=== PATIENT | male | born 1945 | race Caucasian/White ===

== ENCOUNTER 2020-11-02 07:26 | Inpatient (IN) | payer MEDICARE ==
[~2020-11-02] VITALS: Ht 177.8 cm; Wt 62.0 kg
[~2020-11-02 07:26] MED LIST: CARV3.1212 PO; CHLO25CA9 PO; DILT120C11 PO; FERR324T23 PO; FURO-93 PO; LISI5TAB7 PO; MULT-484 PO; POTA8TAB PO; RIVA20TA PO; SPIR25TA PO
[2020-11-02] MEDS ORDERED: SODIUM CHLORIDE FLUSH 10ML SYR IVF ONE (07:30)
[2020-11-02] MEDS ORDERED: DILTIAZEM 5 MG/ML, 5ML IVPush ONE (07:30)
--- NOTE | 2020-11-02 07:40 | NUR ---
ROOM AIR O2 SAT: 82%. O2 2LNC REAPPLIED. PT NON-COMPLIANT W/ PRESCRIBED MEDICATIONS.
[2020-11-02 07:52] LABS: BASOPHILS % (AUTO) 1 % (0-1); EOSINOPHILS % (AUTO) 0 % (1-7); LYMPHOCYTES % (AUTO) 6 % (22-44); MEAN CORPUSCULAR HEMOGLOBIN 33.3 pg (27.5-34.5); MEAN CORPUSCULAR HGB CONC 33.5 g/dL (33.2-36.2); MEAN PLATELET VOLUME 6.9 fL (7.4-10.4); MONOCYTES % (AUTO) 9 % (2-9); NEUTROPHILS % (AUTO) 85 % (42-75); PLATELET COUNT 214 x10^3/uL (130-400); RED BLOOD COUNT 4.03 x10^6/uL (4.38-5.82); RED CELL DISTRIBUTION WIDTH 15.2 % (9.4-14.8)
[2020-11-02] MEDS ORDERED: DILTIAZEM 5 MG/ML, 5ML ONE (07:52)
[2020-11-02 07:59] LABS: ALANINE AMINOTRANSFERASE 484 U/L (12-78); ANION GAP 11 mmol/L (5-15); CALCIUM 8.3 mg/dL (8.5-10.1); CHLORIDE 102 mmol/L (98-107); CREATININE 1.13 mg/dL (0.7-1.3)
[2020-11-02 08:03] LABS: ALKALINE PHOSPHATASE 179 U/L (45-117); BILIRUBIN,TOTAL 1.2 mg/dL (0.2-1.0); TOTAL PROTEIN 7.7 g/dL (6.4-8.2); TROPONIN I 0.032 ng/mL (0.000-0.045)
--- NOTE | 2020-11-02 08:03 | NUR ---
CARDIZEM GIVEN; IV SITE PATENT.
[2020-11-02] MEDS ORDERED: DILTIAZEM 5 MG/ML, 5ML IVPush STA (08:15)
[2020-11-02] MEDS ORDERED: FUROSEMIDE 20 MG/2 ML ONE (08:25)
[2020-11-02] MEDS ORDERED: ASPIRIN 81 MG TABLET CHEW ONE (08:25)
[2020-11-02] MEDS ORDERED: FUROSEMIDE 20 MG/2 ML IV ONE (08:30)
[2020-11-02] MEDS ORDERED: ASPIRIN 81 MG TABLET CHEW PO ONE (08:30)
--- NOTE | 2020-11-02 08:39 | NUR ---
DILTIAZEM, ASA AND LASIX GIVEN PER EMAR. HR 120-125
[2020-11-02] MEDS: DILTIAZEM 125 MG in SODIUM CHLORIDE 0.9% 100 ML IV SCH ×2 (08:57→17:51)
--- NOTE | 2020-11-02 08:58 | NUR ---
CARDIZEM DRIP INITIATED; INFUSING AT 10ML/HR VIA PUMP.
--- NOTE | 2020-11-02 10:08 | NUR ---
PT REPORT WAS GIVEN TO HENRRY RODRIGUEZ FOR ROOM 506. PT WAS TRANSPORTED TO UNIT PER VANNA
--- NOTE | 2020-11-02 10:11 | NUR ---
CORRECTION: PT NOW TRANSFERRED TO UNIT PER VANNA
[2020-11-02] MEDS: RIVAROXABAN 20 MG TABLET PO SCH (11:42)
[2020-11-02] MEDS ORDERED: HYDROCORTISONE CRM 1%, 30GM TP PRN (14:00)
[2020-11-02 15:14] VITALS: BP 111/72
[2020-11-02] MEDS: FERROUS GLUCONATE 324 MG TABLET PO SCH (16:23)
[2020-11-02] MEDS: ACETAMINOPHEN 325 MG TABLET PO PRN (17:34)
[2020-11-02 19:22] VITALS: BP 118/78
[2020-11-02] MEDS: DIPHENHYDRAMINE 25 MG CAPSULE PO PRN (21:04)
[2020-11-03 00:02] VITALS: BP 102/72
[2020-11-03] MEDS: OXYcodone IR 5MG TABLET PO PRN ×2 (02:28→21:04)
[2020-11-03] MEDS ORDERED: LIDODERM 5% PATCH TD ONE (03:30)
[2020-11-03 05:22] LABS: BASOPHILS % (AUTO) 0 % (0-1); EOSINOPHILS % (AUTO) 1 % (1-7); LYMPHOCYTES % (AUTO) 9 % (22-44); MEAN CORPUSCULAR HGB CONC 33.5 g/dL (33.2-36.2); MEAN PLATELET VOLUME 7.5 fL (7.4-10.4); MONOCYTES % (AUTO) 11 % (2-9); NEUTROPHILS % (AUTO) 79 % (42-75); PLATELET COUNT 188 x10^3/uL (130-400); RED BLOOD COUNT 3.81 x10^6/uL (4.38-5.82); RED CELL DISTRIBUTION WIDTH 15.1 % (9.4-14.8)
[2020-11-03 05:33] LABS: CHLORIDE 98 mmol/L (98-107)
[2020-11-03 05:42] LABS: ALANINE AMINOTRANSFERASE 336 U/L (12-78); ALBUMIN 2.9 g/dL (3.4-5.0); ALKALINE PHOSPHATASE 162 U/L (45-117); ANION GAP 5 mmol/L (5-15); CALCIUM 8.2 mg/dL (8.5-10.1); CREATININE 0.86 mg/dL (0.7-1.3); TOTAL PROTEIN 7.4 g/dL (6.4-8.2)
[2020-11-03 06:47] VITALS: BP 123/79
[2020-11-03] MEDS: DILTIAZEM 125 MG in SODIUM CHLORIDE 0.9% 100 ML IV SCH ×2 (07:12→21:04)
[2020-11-03] MEDS: FERROUS GLUCONATE 324 MG TABLET PO SCH ×2 (08:00→16:58)
[2020-11-03] MEDS ORDERED: FUROSEMIDE 20 MG/2 ML IV SCH (09:00)
[2020-11-03] MEDS: RIVAROXABAN 20 MG TABLET PO SCH (09:39)
[2020-11-03] MEDS ORDERED: OMNIPAQUE 350 MG/ML, 75ML BOTTLE ONE (11:52)
[2020-11-03 12:10] VITALS: BP 126/85
[2020-11-03] MEDS: FUROSEMIDE 20 MG/2 ML IV SCH (17:03)
[2020-11-03 18:43] VITALS: BP 112/79
[2020-11-03] MEDS: DIPHENHYDRAMINE 25 MG CAPSULE PO PRN (21:03)
[2020-11-03 23:14] VITALS: BP 122/84
[2020-11-04 06:00] LABS: BASOPHILS % (AUTO) 0 % (0-1); EOSINOPHILS % (AUTO) 0 % (1-7); LYMPHOCYTES % (AUTO) 4 % (22-44); MEAN CORPUSCULAR HEMOGLOBIN 33.5 pg (27.5-34.5); MEAN PLATELET VOLUME 7.5 fL (7.4-10.4); MONOCYTES % (AUTO) 9 % (2-9); NEUTROPHILS % (AUTO) 86 % (42-75); PLATELET COUNT 176 x10^3/uL (130-400); RED BLOOD COUNT 3.86 x10^6/uL (4.38-5.82); RED CELL DISTRIBUTION WIDTH 15.2 % (9.4-14.8)
[2020-11-04 06:06] LABS: ANION GAP 6 mmol/L (5-15); CALCIUM 8.5 mg/dL (8.5-10.1); CHLORIDE 97 mmol/L (98-107)
[2020-11-04 06:35] LABS: ALANINE AMINOTRANSFERASE 238 U/L (12-78); ALKALINE PHOSPHATASE 149 U/L (45-117); CREATININE 0.82 mg/dL (0.7-1.3); TOTAL PROTEIN 7.8 g/dL (6.4-8.2)
[2020-11-04 06:57] VITALS: BP 115/70
[2020-11-04] MEDS: FERROUS GLUCONATE 324 MG TABLET PO SCH ×2 (08:00→16:46)
[2020-11-04] MEDS: FUROSEMIDE 20 MG/2 ML IV SCH ×2 (08:02→16:44)
[2020-11-04] MEDS: DILTIAZEM 125 MG in SODIUM CHLORIDE 0.9% 100 ML IV SCH ×2 (08:03→20:35)
[2020-11-04] MEDS: RIVAROXABAN 20 MG TABLET PO SCH (08:03)
[2020-11-04 12:15] VITALS: BP 109/72
[2020-11-04] MEDS: SENNA/DOCUSATE TABLET PO PRN (17:05)
[2020-11-04 19:31] VITALS: BP 119/77
[2020-11-04] MEDS: ACETAMINOPHEN 325 MG TABLET PO PRN (20:35)
[2020-11-05 00:05] VITALS: BP 117/75
[2020-11-05] MEDS: DIPHENHYDRAMINE 25 MG CAPSULE PO PRN ×2 (01:36→19:54)
[2020-11-05] MEDS: LORazepam 1MG TABLET PO PRN ×2 (02:44→19:54)
[2020-11-05 04:30] VITALS: BP 126/72
[2020-11-05] MEDS ORDERED: FUROSEMIDE 40 MG/4 ML IV STA (05:34)
[2020-11-05 05:45] LABS: ALBUMIN 2.8 g/dL (3.4-5.0); ANION GAP 6 mmol/L (5-15); CALCIUM 8.2 mg/dL (8.5-10.1); CHLORIDE 95 mmol/L (98-107)
[2020-11-05 05:47] LABS: BASOPHILS % (AUTO) 0 % (0-1); EOSINOPHILS % (AUTO) 0 % (1-7); LYMPHOCYTES % (AUTO) 5 % (22-44); MEAN CORPUSCULAR HEMOGLOBIN 32.8 pg (27.5-34.5); MEAN CORPUSCULAR HGB CONC 33.2 g/dL (33.2-36.2); MEAN PLATELET VOLUME 7.3 fL (7.4-10.4); MONOCYTES % (AUTO) 8 % (2-9); NEUTROPHILS % (AUTO) 87 % (42-75); PLATELET COUNT 171 x10^3/uL (130-400); RED CELL DISTRIBUTION WIDTH 15.2 % (9.4-14.8)
[2020-11-05 05:48] LABS: ALANINE AMINOTRANSFERASE 170 U/L (12-78); ALKALINE PHOSPHATASE 139 U/L (45-117); BILIRUBIN,TOTAL 2.3 mg/dL (0.2-1.0); CREATININE 0.79 mg/dL (0.7-1.3); TOTAL PROTEIN 7.7 g/dL (6.4-8.2)
[2020-11-05 06:41] VITALS: BP 121/78
[2020-11-05] MEDS: FUROSEMIDE 20 MG/2 ML IV SCH (08:00)
[2020-11-05] MEDS: FERROUS GLUCONATE 324 MG TABLET PO SCH ×2 (08:00→17:00)
[2020-11-05] MEDS: RIVAROXABAN 20 MG TABLET PO SCH (08:00)
[2020-11-05] MEDS ORDERED: FUROSEMIDE 40 MG/4 ML IV ONE (10:00)
[2020-11-05] MEDS ORDERED: POTASSIUM CHLORIDE 20 MEQ TAB.ER.PRT PO ONE (10:00)
[2020-11-05] MEDS: DILTIAZEM 125 MG in SODIUM CHLORIDE 0.9% 100 ML IV SCH ×2 (10:48→23:31)
[2020-11-05 14:26] VITALS: BP 111/69
[2020-11-05] MEDS: DEXAMETHASONE 4 MG/ML, 1ML IVPush SCH (15:55)
[2020-11-05] MEDS: POTASSIUM CHLORIDE 20 MEQ TAB.ER.PRT PO SCH (17:00)
[2020-11-05] MEDS: FUROSEMIDE 40 MG/4 ML IV SCH (17:02)
[2020-11-05] MEDS ORDERED: MAGNESIUM SULFATE PMX 2GM/50ML 50 ML IV ONE (18:30)
[2020-11-05 18:48] VITALS: BP 112/59
[2020-11-06] VITALS (9 sets, daily range): BP systolic 98–167; BP diastolic 54–78
[2020-11-06] MEDS: ACETAMINOPHEN 325 MG TABLET PO PRN ×2 (05:17→18:25)
[2020-11-06] MEDS: OXYcodone IR 5MG TABLET PO PRN (06:15)
[2020-11-06 07:29] LABS: BASOPHILS % (AUTO) 0 % (0-1); EOSINOPHILS % (AUTO) 0 % (1-7); LYMPHOCYTES % (AUTO) 2 % (22-44); MEAN CORPUSCULAR HEMOGLOBIN 32.9 pg (27.5-34.5); MEAN PLATELET VOLUME 7.4 fL (7.4-10.4); MONOCYTES % (AUTO) 4 % (2-9); NEUTROPHILS % (AUTO) 94 % (42-75); PLATELET COUNT 167 x10^3/uL (130-400); RED BLOOD COUNT 3.69 x10^6/uL (4.38-5.82); RED CELL DISTRIBUTION WIDTH 15.2 % (9.4-14.8)
[2020-11-06 07:37] LABS: CALCIUM 8.2 mg/dL (8.5-10.1); CREATININE 0.94 mg/dL (0.7-1.3)
[2020-11-06 07:45] LABS: ANION GAP 4 mmol/L (5-15); CHLORIDE 92 mmol/L (98-107)
[2020-11-06] MEDS ORDERED: CEFTRIAXONE 2 GM in DEXTROSE 5% 50 ML IVPB SCH (09:00)
[2020-11-06] MEDS ORDERED: FILTER 0.22 MICRON FOR AMIODARONE IV PRN (09:00)
[2020-11-06] MEDS ORDERED: AMIODARONE 150 MG in DEXTROSE 5% 100 ML IV ONE (09:00)
[2020-11-06] MEDS: POTASSIUM CHLORIDE 20 MEQ TAB.ER.PRT PO SCH (09:05)
[2020-11-06] MEDS: RIVAROXABAN 20 MG TABLET PO SCH (09:05)
[2020-11-06] MEDS: FERROUS GLUCONATE 324 MG TABLET PO SCH ×2 (09:06→18:26)
[2020-11-06] MEDS: DEXAMETHASONE 4 MG/ML, 1ML IVPush SCH (09:06)
[2020-11-06] MEDS: FUROSEMIDE 40 MG/4 ML IV SCH ×2 (09:06→18:26)
[2020-11-06] MEDS: AMIODARONE 450 MG in DEXTROSE 5% 241 ML IV PRN ×3 (09:52→21:35)
[2020-11-06] MEDS: MEROPENEM 1 GM in SODIUM CHLORIDE 0.9% 100 ML IV SCH ×2 (09:55→18:26)
[2020-11-06] MEDS: INSULIN LISPRO 100 UNITS/ML, PEN SQ-INSULIN SCH ×3 (12:49→21:17)
[2020-11-06] MEDS: SPIRONOLACTONE 25 MG TABLET PO SCH (15:45)
[2020-11-06] MEDS: DIPHENHYDRAMINE 25 MG CAPSULE PO PRN (21:16)
[2020-11-06] MEDS: LORazepam 1MG TABLET PO PRN (21:16)
[2020-11-07 01:08] VITALS: BP 110/67
[2020-11-07] MEDS: MEROPENEM 1 GM in SODIUM CHLORIDE 0.9% 100 ML IV SCH ×3 (01:21→18:34)
[2020-11-07 06:24] LABS: BASOPHILS % (AUTO) 0 % (0-1); EOSINOPHILS % (AUTO) 0 % (1-7); LYMPHOCYTES % (AUTO) 2 % (22-44); MEAN CORPUSCULAR HEMOGLOBIN 33.4 pg (27.5-34.5); MEAN CORPUSCULAR HGB CONC 33.4 g/dL (33.2-36.2); MEAN PLATELET VOLUME 7.6 fL (7.4-10.4); MONOCYTES % (AUTO) 5 % (2-9); NEUTROPHILS % (AUTO) 94 % (42-75); PLATELET COUNT 188 x10^3/uL (130-400); RED BLOOD COUNT 3.62 x10^6/uL (4.38-5.82); RED CELL DISTRIBUTION WIDTH 14.9 % (9.4-14.8)
[2020-11-07 06:46] LABS: CHLORIDE 93 mmol/L (98-107)
[2020-11-07 06:50] LABS: ANION GAP 3 mmol/L (5-15); CALCIUM 8.2 mg/dL (8.5-10.1); CREATININE 0.87 mg/dL (0.7-1.3)
[2020-11-07] MEDS: FUROSEMIDE 40 MG/4 ML IV SCH ×2 (08:46→18:43)
[2020-11-07] MEDS: FERROUS GLUCONATE 324 MG TABLET PO SCH ×2 (08:46→18:43)
[2020-11-07] MEDS: RIVAROXABAN 20 MG TABLET PO SCH (08:46)
[2020-11-07] MEDS: SPIRONOLACTONE 25 MG TABLET PO SCH (08:46)
[2020-11-07] MEDS: INSULIN LISPRO 100 UNITS/ML, PEN SQ-INSULIN SCH ×4 (08:46→20:12)
[2020-11-07] MEDS: DEXAMETHASONE 4 MG/ML, 1ML IVPush SCH (08:47)
[2020-11-07 09:00] VITALS: BP 121/80
[2020-11-07] MEDS ORDERED: POTASSIUM CHLORIDE 20 MEQ TAB.ER.PRT PO SCH ×2 (09:00)
[2020-11-07] MEDS: OXYcodone IR 5MG TABLET PO PRN (13:54)
[2020-11-07] MEDS: AMIODARONE 450 MG in DEXTROSE 5% 241 ML IV PRN (14:36)
[2020-11-07 14:50] VITALS: BP 132/75
[2020-11-07 20:05] VITALS: BP 122/85
[2020-11-07] MEDS: DIPHENHYDRAMINE 25 MG CAPSULE PO PRN (21:12)
[2020-11-07] MEDS: SENNA/DOCUSATE TABLET PO PRN (21:42)
[2020-11-07] MEDS: ACETAMINOPHEN 325 MG TABLET PO PRN (21:42)
[2020-11-08] MEDS: LORazepam 1MG TABLET PO PRN ×2 (00:42→20:29)
[2020-11-08] MEDS: MEROPENEM 1 GM in SODIUM CHLORIDE 0.9% 100 ML IV SCH ×3 (00:42→16:53)
[2020-11-08 00:48] VITALS: BP 116/85
[2020-11-08 05:18] LABS: MEAN CORPUSCULAR HEMOGLOBIN 33.1 pg (27.5-34.5); MEAN CORPUSCULAR HGB CONC 33.3 g/dL (33.2-36.2); MEAN PLATELET VOLUME 7.5 fL (7.4-10.4); PLATELET COUNT 210 x10^3/uL (130-400)
[2020-11-08 05:24] LABS: ANION GAP 0 mmol/L (5-15); CALCIUM 8.5 mg/dL (8.5-10.1); CHLORIDE 93 mmol/L (98-107)
[2020-11-08 05:25] LABS: CREATININE 0.87 mg/dL (0.7-1.3)
[2020-11-08] MEDS: AMIODARONE 450 MG in DEXTROSE 5% 241 ML IV PRN (05:52)
[2020-11-08 05:53] LABS: LYMPH#(MANUAL) 0.46 x10^3/uL (1-3.4); LYMPHS% (MANUAL) 2 % (22-44); MONOS#(MANUAL) 0.69 x10^3/uL (0.3-2.7); MONOS% (MANUAL) 3 % (2-9); PMNS WITH VACUOLES 1+; SEG#(MANUAL) 21.95 x10^3/uL (1.8-6.8); SEGS% (MANUAL) 95 % (42-75)
[2020-11-08 05:54] LABS: <PLATELET ESTIMATE> ADEQUATE; <PLT MORPHOLOGY> NORMAL PLT MORPH; ANISOCYTOSIS 1+; TARGET CELLS 1+
[2020-11-08] MEDS: INSULIN LISPRO 100 UNITS/ML, PEN SQ-INSULIN SCH ×4 (07:00→20:29)
[2020-11-08 07:12] VITALS: BP 118/81
[2020-11-08] MEDS: ACETAMINOPHEN 325 MG TABLET PO PRN ×2 (09:39→16:15)
[2020-11-08] MEDS: SPIRONOLACTONE 25 MG TABLET PO SCH (09:40)
[2020-11-08] MEDS: RIVAROXABAN 20 MG TABLET PO SCH (09:40)
[2020-11-08] MEDS: DEXAMETHASONE 4 MG/ML, 1ML IVPush SCH (09:41)
[2020-11-08] MEDS: FUROSEMIDE 40 MG/4 ML IV SCH ×2 (09:41→16:54)
[2020-11-08] MEDS: FERROUS GLUCONATE 324 MG TABLET PO SCH ×2 (09:56→16:54)
[2020-11-08] MEDS: AMIODARONE 200 MG TABLET PO SCH ×2 (11:08→20:29)
[2020-11-08 14:30] VITALS: BP 120/80
[2020-11-08] MEDS: SENNA/DOCUSATE TABLET PO PRN (16:54)
[2020-11-08 19:39] VITALS: BP 125/87
[2020-11-08] MEDS: DIPHENHYDRAMINE 25 MG CAPSULE PO PRN (20:29)
[2020-11-09 01:33] VITALS: BP 120/77
[2020-11-09] MEDS: MEROPENEM 1 GM in SODIUM CHLORIDE 0.9% 100 ML IV SCH ×3 (01:46→16:46)
[2020-11-09 04:30] LABS: BASOPHILS % (AUTO) 0 % (0-1); EOSINOPHILS % (AUTO) 0 % (1-7); LYMPHOCYTES % (AUTO) 3 % (22-44); MEAN CORPUSCULAR HEMOGLOBIN 33.2 pg (27.5-34.5); MEAN CORPUSCULAR HGB CONC 33.7 g/dL (33.2-36.2); MEAN PLATELET VOLUME 7.8 fL (7.4-10.4); MONOCYTES % (AUTO) 6 % (2-9); NEUTROPHILS % (AUTO) 90 % (42-75); PLATELET COUNT 191 x10^3/uL (130-400); RED CELL DISTRIBUTION WIDTH 15.2 % (9.4-14.8)
[2020-11-09 04:38] LABS: ALANINE AMINOTRANSFERASE 65 U/L (12-78); ALBUMIN 2.6 g/dL (3.4-5.0); CALCIUM 8.5 mg/dL (8.5-10.1)
[2020-11-09 04:49] LABS: ANION GAP 2 mmol/L (5-15); CHLORIDE 90 mmol/L (98-107)
[2020-11-09 04:52] LABS: CREATININE 0.93 mg/dL (0.7-1.3)
[2020-11-09 04:53] LABS: ALKALINE PHOSPHATASE 109 U/L (45-117); BILIRUBIN,TOTAL 2.2 mg/dL (0.2-1.0); TOTAL PROTEIN 7.6 g/dL (6.4-8.2)
[2020-11-09 05:04] LABS: <PLATELET ESTIMATE> ADEQUATE; <PLT MORPHOLOGY> NORMAL PLT MORPH; ANISOCYTOSIS 1+; HYPOCHROMIA 1+; OVALOCYTES 1+; TARGET CELLS 1+
[2020-11-09] MEDS: LORazepam 2 MG/ML, 1ML IVPush PRN (05:24)
[2020-11-09] MEDS: INSULIN LISPRO 100 UNITS/ML, PEN SQ-INSULIN SCH ×5 (07:00→19:49)
[2020-11-09 07:40] VITALS: BP 128/85
[2020-11-09] MEDS: FUROSEMIDE 40 MG/4 ML IV SCH ×2 (07:58→16:46)
[2020-11-09] MEDS: SPIRONOLACTONE 25 MG TABLET PO SCH (07:59)
[2020-11-09] MEDS: AMIODARONE 200 MG TABLET PO SCH ×2 (07:59→19:47)
[2020-11-09] MEDS: DEXAMETHASONE 4 MG/ML, 1ML IVPush SCH (07:59)
[2020-11-09] MEDS: RIVAROXABAN 20 MG TABLET PO SCH (07:59)
[2020-11-09] MEDS: FERROUS GLUCONATE 324 MG TABLET PO SCH ×2 (07:59→16:46)
[2020-11-09] MEDS: ACETAMINOPHEN 325 MG TABLET PO PRN ×2 (09:26→19:47)
[2020-11-09] MEDS: OXYcodone IR 5MG TABLET PO PRN (09:27)
[2020-11-09] MEDS: METOPROLOL TARTRATE 25 MG TAB PO SCH ×3 (09:29→19:47)
[2020-11-09 12:42] VITALS: BP 113/67
[2020-11-09 19:06] VITALS: BP 113/74
[2020-11-09] MEDS: DIPHENHYDRAMINE 25 MG CAPSULE PO PRN (19:52)
[2020-11-09] MEDS: LORazepam 1MG TABLET PO PRN (23:13)
[2020-11-10] MEDS: MEROPENEM 1 GM in SODIUM CHLORIDE 0.9% 100 ML IV SCH ×3 (01:34→17:09)
[2020-11-10 01:56] VITALS: BP 106/66
[2020-11-10] MEDS: LORazepam 2 MG/ML, 1ML IVPush PRN ×2 (02:35→13:14)
[2020-11-10 04:58] LABS: CALCIUM 8.4 mg/dL (8.5-10.1)
[2020-11-10 05:05] LABS: CHLORIDE 90 mmol/L (98-107)
[2020-11-10 05:10] LABS: ANION GAP 1 mmol/L (5-15)
[2020-11-10 06:54] VITALS: BP 106/68
[2020-11-10] MEDS: DEXAMETHASONE 4 MG/ML, 1ML IVPush SCH (08:44)
[2020-11-10] MEDS: RIVAROXABAN 20 MG TABLET PO SCH (08:44)
[2020-11-10] MEDS: FUROSEMIDE 40 MG/4 ML IV SCH ×2 (08:44→17:09)
[2020-11-10] MEDS: METOPROLOL TARTRATE 25 MG TAB PO SCH ×3 (08:45→20:54)
[2020-11-10] MEDS: SPIRONOLACTONE 25 MG TABLET PO SCH (08:45)
[2020-11-10] MEDS: FERROUS GLUCONATE 324 MG TABLET PO SCH ×2 (08:45→17:09)
[2020-11-10] MEDS: AMIODARONE 200 MG TABLET PO SCH ×2 (08:45→20:54)
[2020-11-10] MEDS: OXYcodone IR 5MG TABLET PO PRN (10:07)
[2020-11-10 13:36] VITALS: BP 105/73
[2020-11-10] MEDS ORDERED: LORazepam 2 MG/ML, 1ML IVPush PRN (15:30)
[2020-11-10 20:06] VITALS: BP 100/67
[2020-11-10 20:53] VITALS: BP 112/83
[2020-11-11] MEDS: MEROPENEM 1 GM in SODIUM CHLORIDE 0.9% 100 ML IV SCH ×2 (01:12→08:31)
[2020-11-11] MEDS: ACETAMINOPHEN 325 MG TABLET PO PRN (01:22)
[2020-11-11 01:25] VITALS: BP 109/76
[2020-11-11] MEDS: OXYcodone IR 5MG TABLET PO PRN (06:18)
[2020-11-11 07:25] VITALS: BP 116/84
[2020-11-11 08:18] LABS: BASOPHILS % (AUTO) 0 % (0-1); EOSINOPHILS % (AUTO) 0 % (1-7); LYMPHOCYTES % (AUTO) 3 % (22-44); MEAN CORPUSCULAR HEMOGLOBIN 32.7 pg (27.5-34.5); MEAN CORPUSCULAR HGB CONC 32.7 g/dL (33.2-36.2); MEAN PLATELET VOLUME 7.8 fL (7.4-10.4); MONOCYTES % (AUTO) 7 % (2-9); NEUTROPHILS % (AUTO) 91 % (42-75); PLATELET COUNT 298 x10^3/uL (130-400); RED BLOOD COUNT 4.03 x10^6/uL (4.38-5.82); RED CELL DISTRIBUTION WIDTH 14.8 % (9.4-14.8)
[2020-11-11] MEDS: SPIRONOLACTONE 25 MG TABLET PO SCH (08:25)
[2020-11-11] MEDS: FERROUS GLUCONATE 324 MG TABLET PO SCH (08:25)
[2020-11-11] MEDS: AMIODARONE 200 MG TABLET PO SCH (08:25)
[2020-11-11] MEDS: METOPROLOL TARTRATE 25 MG TAB PO SCH (08:25)
[2020-11-11] MEDS: FUROSEMIDE 40 MG/4 ML IV SCH (08:25)
[2020-11-11] MEDS: DEXAMETHASONE 4 MG/ML, 1ML IVPush SCH (08:25)
[2020-11-11] MEDS: RIVAROXABAN 20 MG TABLET PO SCH (08:25)
[2020-11-11 08:33] LABS: CALCIUM 8.5 mg/dL (8.5-10.1)
[2020-11-11 08:42] LABS: ANION GAP 3 mmol/L (5-15); CHLORIDE 92 mmol/L (98-107)
[2020-11-11] MEDS ORDERED: morphine SULFATE 10 MG/ML, 1ML ONE (12:04)
[2020-11-11 12:21] LABS: CALCIUM 8.4 mg/dL (8.5-10.1); CREATININE 1.04 mg/dL (0.7-1.3)
[2020-11-11 12:30] LABS: CHLORIDE 91 mmol/L (98-107)
[2020-11-11] MEDS ORDERED: LORazepam 2 MG/ML, 1ML IVPush PRN (12:30)
[2020-11-11] MEDS ORDERED: morphine SULFATE 10 MG/ML, 1ML IVPush PRN (12:30)
[2020-11-11 12:35] LABS: ANION GAP 5 mmol/L (5-15)
[2020-11-12] MEDS ORDERED: FUROSEMIDE 40 MG/4 ML IV SCH (09:00)
== END 2020-11-11 12:54 | disposition expired | DRG 291 ==
LOC: ED 07:53 → EDIP 08:29 → 5SO 10:59
PROVIDERS: ADMIT Family Medicine; ATTEND Hospitalist
DX: I50.23 Acute on chronic systolic (congestive) heart failure (principal); J96.01 Acute respiratory failure with hypoxia; E43 Unspecified severe protein-calorie malnutrition; J18.9 Pneumonia, unspecified organism; D68.69 Other thrombophilia; E87.1 Hypo-osmolality and hyponatremia; Z68.1 Body mass index [BMI] 19.9 or less, adult; Z51.5 Encounter for palliative care; Z66 Do not resuscitate; Z20.822 Contact with and (suspected) exposure to COVID-19; E87.6 Hypokalemia; G20 Parkinson's disease; I27.29 Other secondary pulmonary hypertension; I44.7 Left bundle-branch block, unspecified; I48.91 Unspecified atrial fibrillation; K76.1 Chronic passive congestion of liver; L43.9 Lichen planus, unspecified; Z79.01 Long term (current) use of anticoagulants; Z79.899 Other long term (current) drug therapy; Z91.14 Patient's other noncompliance with medication regimen
CPT/HCPCS: 36415; 36600; 71045; 71260; 76705; 80048; 80053; 82607; 82803; 82962; 83615; 83735; 83880; 84100; 84145; 84443; 84484; 85025; 86140; 93005; 96374; C8929; G0378; J1100; J1940; J2185; J7060; Q9957; Q9967; U0005; J0282; J1815; J2060; J2270; J3475; Q0163; U0003